=== PATIENT | female | born 1955 | race Caucasian/White ===

== ENCOUNTER → 2016-09-24 | Outpatient (CLI) | payer BC ==
[~2016-09-24] MED LIST: ADVIL200 MG PO; ALEVE220 M1 PO; ASPIRIN81 MG PO; ATIVAN0.5 M1 PO; ATIVAN0.5 MG PO; BACTRIM DS TAB1 EACH PO; CARAFATE1 GM PO; CELEXA20 M1 PO; CELEXA40 MG PO; COLACE100 MG PO; CULTURELLE CHE1 EACH PO; DETROL LA2 MG PO; DITROPAN XL5 MG PO; DURAGESIC25 MCG TRDERM; ESCITALOPRAM OX20 MG PO; FLEXERIL10 MG PO; FOLIC ACID1 MG PO; GLUCOPHAGE XR500 MG PO; GLUCOPHAGE500 MG PO; LEVAQUIN750 MG PO; LINZESS145 MCG PO; LIPITOR40 MG PO; MILK OF MAGNESI30 ML PO; MIRALAX17 GM PO; MOBIC15 MG PO; MORPHINE O10 MG/0.5 PO; NAPROSYN500 MG PO; NORCO 325-5 MG1 TAB PO; PERCOCET 325-51 TAB PO; PERCOCET 5-3251 EACH PO; PREVACID15 MG PO; PRILOSEC20 MG PO; SENNA S TABLET1 EACH PO; TESSALON PERLE100 M1 PO; TOPROL XL50 MG PO; TRIAMCINOLONE A15 GM TOP; TYLENOL500 MG PO; VESICARE5 MG PO; VITAMIN B-12100 MCG PO; VITAMIN D31000 UNI1 PO; VITAMIN D31000 UNIT PO; ZOFRAN ODT8 MG PO
== END | disposition short-term general hospital (02) ==
LOC: CLONCO 10:27
DX: C85.90 Non-Hodgkin lymphoma, unspecified, unspecified site (principal); D64.81 Anemia due to antineoplastic chemotherapy

== ENCOUNTER 2016-10-18 15:53 | Observation (INO) | payer BC ==
[~2016-10-18] VITALS: Ht 170.2 cm; Wt 71.3 kg
[~2016-10-18 15:53] MED LIST changes: -ADVIL200 MG PO; -ALEVE220 M1 PO; -ATIVAN0.5 M1 PO; -ATIVAN0.5 MG PO; -BACTRIM DS TAB1 EACH PO; -CARAFATE1 GM PO; -CELEXA20 M1 PO; -CULTURELLE CHE1 EACH PO; -DITROPAN XL5 MG PO; -ESCITALOPRAM OX20 MG PO; -FOLIC ACID1 MG PO; -GLUCOPHAGE XR500 MG PO; -LEVAQUIN750 MG PO; -LINZESS145 MCG PO; -MORPHINE O10 MG/0.5 PO; -PERCOCET 325-51 TAB PO; -TESSALON PERLE100 M1 PO; -TOPROL XL50 MG PO; -TRIAMCINOLONE A15 GM TOP; -TYLENOL500 MG PO; -VESICARE5 MG PO; -VITAMIN B-12100 MCG PO; -VITAMIN D31000 UNIT PO; -ZOFRAN ODT8 MG PO
[2016-10-18] MEDS ORDERED: BACTRIM DS TAB1 EACH PO (17:02)
[2016-10-18] MEDS ORDERED: TOPROL XL50 MG PO (17:24)
[2016-10-18] MEDS ORDERED: PRILOSEC20 MG PO (17:25)
[2016-10-18] MEDS ORDERED: ALEVE220 M1 PO (17:25)
[2016-10-18] MEDS ORDERED: TRIAMCINOLONE A15 GM TOP (17:26)
[2016-10-18] MEDS ORDERED: ATIVAN0.5 MG PO (17:28)
[2016-10-18] MEDS ORDERED: ESCITALOPRAM OX20 MG PO (17:32)
[2016-12-04] MEDS ORDERED: TESSALON PERLE100 M1 PO (01:46)
[2016-12-04] MEDS ORDERED: DITROPAN XL5 MG PO (01:46)
[2016-12-04] MEDS ORDERED: ADVIL200 MG PO (01:47)
[2017-02-04] MEDS ORDERED: CELEXA20 M1 PO (19:47)
== END 2016-10-19 09:45 | disposition short-term general hospital (02) ==
LOC: ER 15:53 → IP 18:35 → OBS 18:35 → IP 10-19 09:45
PROVIDERS: ADMIT Family Medicine
DX: R55 Syncope and collapse (principal); D64.9 Anemia, unspecified; C85.90 Non-Hodgkin lymphoma, unspecified, unspecified site; I10 Essential (primary) hypertension; E11.9 Type 2 diabetes mellitus without complications; K21.9 Gastro-esophageal reflux disease without esophagitis; E55.9 Vitamin D deficiency, unspecified; J44.9 Chronic obstructive pulmonary disease, unspecified; E78.5 Hyperlipidemia, unspecified; F32.9 Major depressive disorder, single episode, unspecified; Z87.891 Personal history of nicotine dependence; Z91.018 Allergy to other foods; Z79.899 Other long term (current) drug therapy; Z90.49 Acquired absence of other specified parts of digestive tract; Z90.710 Acquired absence of both cervix and uterus; Z98.890 Other specified postprocedural states
CPT/HCPCS: G0378; J1940

== ENCOUNTER → 2016-10-22 | Outpatient (CLI) | payer BC ==
[~2016-10-22] MED LIST changes: +ADVIL200 MG PO; +ALEVE220 M1 PO; +ATIVAN0.5 M1 PO; +ATIVAN0.5 MG PO; +BACTRIM DS TAB1 EACH PO; +CARAFATE1 GM PO; +CELEXA20 M1 PO; +CULTURELLE CHE1 EACH PO; +DITROPAN XL5 MG PO; +ESCITALOPRAM OX20 MG PO; +FOLIC ACID1 MG PO; +GLUCOPHAGE XR500 MG PO; +LEVAQUIN750 MG PO; +LINZESS145 MCG PO; +MORPHINE O10 MG/0.5 PO; +PERCOCET 325-51 TAB PO; +TESSALON PERLE100 M1 PO; +TOPROL XL50 MG PO; +TRIAMCINOLONE A15 GM TOP; +TYLENOL500 MG PO; +VESICARE5 MG PO; +VITAMIN B-12100 MCG PO; +VITAMIN D31000 UNIT PO; +ZOFRAN ODT8 MG PO
== END | disposition short-term general hospital (02) ==
LOC: CLONCO 08:10 → LAB 08:10 → CLONCO 16:11
DX: C85.90 Non-Hodgkin lymphoma, unspecified, unspecified site (principal)

== ENCOUNTER → 2016-11-06 | Outpatient (CLI) | payer BC | END | disposition short-term general hospital (02) | LOC: INF/INJ 07:44 → CLONCO 07:44 | DX: C85.90 Non-Hodgkin lymphoma, unspecified, unspecified site (principal); D64.9 Anemia, unspecified; R53.83 Other fatigue; R35.0 Frequency of micturition; R59.0 Localized enlarged lymph nodes; J90 Pleural effusion, not elsewhere classified; M54.9 Dorsalgia, unspecified; M89.8X9 Other specified disorders of bone, unspecified site; E11.9 Type 2 diabetes mellitus without complications; R63.0 Anorexia; R11.0 Nausea; R00.2 Palpitations; R05 Cough; R06.02 Shortness of breath; R41.0 Disorientation, unspecified; R32 Unspecified urinary incontinence ==

== ENCOUNTER → 2016-11-20 | Outpatient (CLI) | payer BC | END | disposition short-term general hospital (02) | LOC: CLUROL 10-23 10:13 | DX: N39.41 Urge incontinence (principal) ==

== ENCOUNTER 2016-12-03 19:23 | Emergency (ER) | payer BC ==
[~2016-12-03] VITALS: Ht 170.2 cm; Wt 69.4 kg
[~2016-12-03 19:23] MED LIST changes: -ADVIL200 MG PO; -ATIVAN0.5 M1 PO; -CARAFATE1 GM PO; -CELEXA20 M1 PO; -CULTURELLE CHE1 EACH PO; -DITROPAN XL5 MG PO; -FOLIC ACID1 MG PO; -GLUCOPHAGE XR500 MG PO; -LEVAQUIN750 MG PO; -LINZESS145 MCG PO; -MORPHINE O10 MG/0.5 PO; -PERCOCET 325-51 TAB PO; -TESSALON PERLE100 M1 PO; -TYLENOL500 MG PO; -VESICARE5 MG PO; -VITAMIN B-12100 MCG PO; -VITAMIN D31000 UNIT PO; -ZOFRAN ODT8 MG PO
[2016-12-04] MEDS ORDERED: DITROPAN XL5 MG PO (01:46)
[2016-12-04] MEDS ORDERED: TESSALON PERLE100 M1 PO (01:46)
[2016-12-04] MEDS ORDERED: ADVIL200 MG PO (01:47)
[2017-02-04] MEDS ORDERED: CELEXA20 M1 PO (19:47)
== END 2016-12-03 22:50 | disposition short-term general hospital (02) ==
LOC: ER 19:23
DX: E11.65 Type 2 diabetes mellitus with hyperglycemia (principal); E87.6 Hypokalemia; C85.90 Non-Hodgkin lymphoma, unspecified, unspecified site; D64.9 Anemia, unspecified; E55.9 Vitamin D deficiency, unspecified; J44.9 Chronic obstructive pulmonary disease, unspecified; E78.5 Hyperlipidemia, unspecified; E66.9 Obesity, unspecified; Z90.49 Acquired absence of other specified parts of digestive tract; Z98.890 Other specified postprocedural states; Z79.899 Other long term (current) drug therapy; F17.210 Nicotine dependence, cigarettes, uncomplicated
CPT/HCPCS: J1815

== ENCOUNTER → 2016-12-17 | Outpatient (CLI) | payer BC ==
[~2016-12-17] MED LIST changes: +ADVIL200 MG PO; +ATIVAN0.5 M1 PO; +CARAFATE1 GM PO; +CELEXA20 M1 PO; +CULTURELLE CHE1 EACH PO; +DITROPAN XL5 MG PO; +FOLIC ACID1 MG PO; +GLUCOPHAGE XR500 MG PO; +LEVAQUIN750 MG PO; +LINZESS145 MCG PO; +MORPHINE O10 MG/0.5 PO; +PERCOCET 325-51 TAB PO; +TESSALON PERLE100 M1 PO; +TYLENOL500 MG PO; +VESICARE5 MG PO; +VITAMIN B-12100 MCG PO; +VITAMIN D31000 UNIT PO; +ZOFRAN ODT8 MG PO
== END | disposition short-term general hospital (02) ==
LOC: CLONCO 07:54
DX: C85.90 Non-Hodgkin lymphoma, unspecified, unspecified site (principal); D64.9 Anemia, unspecified; J90 Pleural effusion, not elsewhere classified

== ENCOUNTER → 2017-01-08 | Outpatient (CLI) | payer BC | END | disposition short-term general hospital (02) | LOC: CLONCO 04:06 | DX: C82.00 Follicular lymphoma grade I, unspecified site (principal); Z79.899 Other long term (current) drug therapy ==

== ENCOUNTER 2017-04-08 11:51 | Inpatient (IN) | payer BC ==
[~2017-04-08] VITALS: Ht 165.1 cm; Wt 71.0 kg
[~2017-04-08 11:51] MED LIST changes: -ATIVAN0.5 M1 PO; -CARAFATE1 GM PO; -CULTURELLE CHE1 EACH PO; -FOLIC ACID1 MG PO; -GLUCOPHAGE XR500 MG PO; -LEVAQUIN750 MG PO; -LINZESS145 MCG PO; -MORPHINE O10 MG/0.5 PO; -PERCOCET 325-51 TAB PO; -TYLENOL500 MG PO; -VESICARE5 MG PO; -VITAMIN B-12100 MCG PO; -VITAMIN D31000 UNIT PO; -ZOFRAN ODT8 MG PO
[2017-04-08] MEDS ORDERED: ALEVE220 M1 PO (16:36)
[2017-04-08] MEDS ORDERED: FOLIC ACID1 MG PO (16:37)
[2017-04-08] MEDS ORDERED: LINZESS145 MCG PO (16:38)
[2017-04-08] MEDS ORDERED: ATIVAN0.5 M1 PO (16:39)
[2017-04-08] MEDS ORDERED: GLUCOPHAGE XR500 MG PO (16:40)
[2017-04-08] MEDS ORDERED: TOPROL XL50 MG PO (16:40)
[2017-04-08] MEDS ORDERED: ZOFRAN ODT8 MG PO (16:41)
[2017-04-08] MEDS ORDERED: PERCOCET 325-51 TAB PO (16:41)
[2017-04-08] MEDS ORDERED: CARAFATE1 GM PO (16:43)
[2017-04-08] MEDS ORDERED: VESICARE5 MG PO (16:43)
[2017-04-08] MEDS ORDERED: VITAMIN B-12100 MCG PO (16:45)
[2017-04-08] MEDS ORDERED: VITAMIN D31000 UNIT PO (16:47)
[2017-04-09] MEDS ORDERED: COLACE100 MG PO (09:33)
[2017-04-09] MEDS ORDERED: CULTURELLE CHE1 EACH PO (09:35)
[2017-04-11] MEDS ORDERED: MORPHINE O10 MG/0.5 PO (13:08)
[2017-04-11] MEDS ORDERED: PERCOCET 325-51 TAB PO (13:11)
[2017-04-11] MEDS ORDERED: TYLENOL500 MG PO (13:12)
[2017-04-11] MEDS ORDERED: LEVAQUIN750 MG PO (13:32)
== END 2017-04-11 16:57 | disposition hospice, home (50) | DRG 871 ==
LOC: ER 11:51 → IP 17:05
PROVIDERS: ADMIT Family Medicine
PROC: 3E0F7GC Introduction of Other Therapeutic Substance into Respiratory Tract, Via Natural or Artificial Opening (ICD-10-PCS; principal; 2017-04-08)
PROC: 30233N1 Transfusion of Nonautologous Red Blood Cells into Peripheral Vein, Percutaneous Approach (ICD-10-PCS; principal; 2017-04-08)
DX: A41.9 Sepsis, unspecified organism (principal); J18.9 Pneumonia, unspecified organism; C83.30 Diffuse large B-cell lymphoma, unspecified site; C78.7 Secondary malignant neoplasm of liver and intrahepatic bile duct; C79.51 Secondary malignant neoplasm of bone; K52.1 Toxic gastroenteritis and colitis; Z51.5 Encounter for palliative care; R62.7 Adult failure to thrive; R63.4 Abnormal weight loss; R63.0 Anorexia; Z66 Do not resuscitate; T36.95XA Adverse effect of unspecified systemic antibiotic, initial encounter; R32 Unspecified urinary incontinence; F41.9 Anxiety disorder, unspecified; K52.9 Noninfective gastroenteritis and colitis, unspecified; E11.65 Type 2 diabetes mellitus with hyperglycemia; L30.9 Dermatitis, unspecified; K21.9 Gastro-esophageal reflux disease without esophagitis; E55.9 Vitamin D deficiency, unspecified; D63.0 Anemia in neoplastic disease
CPT/HCPCS: J0696; J1956; J2405